=== PATIENT | male | born 1975 | race Asian ===

== ENCOUNTER 2019-08-31 09:30 | Emergency (ER) | payer OTHER ==
[~2019-08-31] VITALS: Ht 177.8 cm; Wt 50.3 kg
[2019-08-31 09:39] VITALS: Ht 177.8 cm; Wt 50.3 kg
[2019-08-31 10:44] LABS: BASOPHIL % 0.4 % (0-2); PLATELET COUNT 233 x10^3mcL (130-400); RED CELL DISTRIBUTION WIDTH 12.6 % (11.5-14.5)
[2019-08-31 10:56] LABS: ALKALINE PHOSPHATASE 83 U/L (46-116); ALT/SGPT 19 U/L (16-63); AST/SGOT 16 U/L (15-37); BILIRUBIN TOTAL 0.8 mg/dL (0.20-1.00); CALCIUM 8.7 mg/dL (8.5-10.1); CARBON DIOXIDE 31.5 mmol/L (21-32); CHLORIDE SERUM 100 mmol/L (98-107); CREATININE SERUM 1.2 mg/dL (0.7-1.3); GFR1 > 60 mL/min; GLUCOSE SERUM 131 mg/dL (74-106); SODIUM SERUM 138 mmol/L (136-145); TOTAL PROTEIN, SERUM 7.6 g/dL (6.4-8.2)
[2019-08-31 17:19] VITALS: BP 118/71
== END 2019-08-31 15:00 | disposition short-term general hospital (02) ==
LOC: ED 09:30
PROVIDERS: Emergency Medicine
DX: G93.0 Cerebral cysts (principal); G91.9 Hydrocephalus, unspecified; R11.2 Nausea with vomiting, unspecified
CPT/HCPCS: J1100; J2765; J7030